=== PATIENT | male | born 1965 | race Caucasian/White ===

== ENCOUNTER 2024-07-21 14:47 | Outpatient (CLI) | payer OTHER | END 2024-07-21 23:59 | disposition short-term general hospital (02) | LOC: EMS 14:47 | PROVIDERS: ATTEND Emergency Medicine | DX: M54.2 Cervicalgia (principal); R42 Dizziness and giddiness; V23.49XA Other motorcycle driver injured in collision with car, pick-up truck or van in traffic accident, initial encounter; Y93.I9 Activity, other involving external motion; Y92.413 State road as the place of occurrence of the external cause | CPT/HCPCS: A0425; A0429 ==